=== PATIENT | female | born 1995 | race Caucasian/White ===

== ENCOUNTER → 2019-08-14 10:55 | Outpatient (CLI) | payer OTHER, MEDICAID, SELFPAY ==
--- NOTE | 2019-08-14 10:59 | DI.US.S_ITS ---
PROCEDURE: US OB <= 14 WEEKS FETUS INDICATIONS: VIABILITY OUTSIDE/PRIOR DATING DATA: Last menstrual period (LMP): 06/27/19. LMP-based estimated date of delivery (JERI): 04/02/20. First dating scan (date and location): 08/14/19 Estimated date of delivery (JERI) from first dating scan: 04/06/20. TECHNIQUE: Real-time scanning was performed of the fetus and maternal pelvic organs, with image documentation. Endovaginal scanning was also performed to better visualize the fetus and maternal ovaries. COMPARISON: None. FINDINGS: Embryo: Single living intrauterine fetus is present with heart rate measured 125 beats per minute. [place]-rump length measures 0.56 cm, 6 weeks 2 days. [place]-gestational hemorrhage measuring 0.6 x 1.0 x 1.6 cm. Irregular shaped/appearance of the yolk sac. Measurement variability in dating: +/- 4 weeks by LMP, +/- 7 days by mean sac diameter (use before 6 weeks gestation if crown-rump length not able to be measured), +/- 5 days by crown-rump length (up to 8 weeks 6 days gestation), +/- 7 days by crown-rump length (up to 13 weeks 6 days gestation). Maternal organs: Ovaries unremarkable bilaterally. Limited images through the kidneys demonstrate no hydronephrosis. IMPRESSION: Single living intrauterine fetus with a gestational age of 6 weeks and 2 days by today's ultrasound measurements. [place]-gestational hemorrhage. Dictated by: Filipe Thakur M.D. on 08/14/2019 at 15:12 Approved by: Filipe Thakur M.D. on 08/14/2019 at 15:16
== END ==
PROVIDERS: Referring Provider Obstetrics & Gynecology; Visit Provider Obstetrics & Gynecology
DX: O20.9 Hemorrhage in early pregnancy, unspecified (principal); Z3A.01 Less than 8 weeks gestation of pregnancy
CPT/HCPCS: 36415; 76801; 76817; 80055; 81003; 84702; 86787; 86803; 86850; 86900; 86901; 87086; 87389

== ENCOUNTER → 2019-08-14 15:16 | Outpatient (CLI) | payer OTHER, MEDICAID, SELFPAY ==
[2019-08-14 16:14] LABS: Add Manual Diff / Slide Review NO; Basophils Absolute Auto 0 /uL (0-100); Basophils Percent Auto 0.5 % (0-2); Eosinophils Absolute Auto 100 /uL (0-450); Eosinophils Percent Auto 1.9 % (2-4); Hematocrit 37.1 % (36-46); Hemoglobin 12.9 g/dL (12.0-16.0); Lymphocytes Absolute Auto 2200 /uL (1100-4500); Lymphocytes Percent Auto 28.5 % (25-40); Mean Corpuscular HGB Conc 34.9 % (30-36); Mean Corpuscular Hemoglobin 30.3 PG (26-34); Monocytes Absolute Auto 700 /uL (0-900); Monocytes Percent Auto 8.7 % (3-14); Neutrophils Absolute Auto 4600 /uL (1500-7000); Neutrophils Percent Auto 60.4 % (50-75); Platelet Count 292 X10^3/uL (150-400); Red Blood Cell Count 4.26 X10^6/uL (4.0-5.2); Red Cell Distribution Width 13.8 % (11.6-14.8); White Blood Cell Count 7.6 X10^3/uL (4.5-11.0)
[2019-08-14 16:31] LABS: Appearance Urine UA CLEAR; Bilirubin Urine UA NEGATIVE (NEGATIVE); Color Urine UA YELLOW; Glucose Urine UA NEGATIVE (Negative); Ketones Urine UA NEGATIVE (NEGATIVE); Leukocyte Esterase Urine UA NEGATIVE (NEGATIVE); Nitrite Urine UA NEGATIVE (Negative); Occult Blood Urine UA NEGATIVE (Negative); Protein Urine UA NEGATIVE (Negative); Specific Gravity Urine UA 1.015 (1.000-1.035); Urobilinogen Urine UA 0.2 E.U./dL (0.2)
[2019-08-14 16:50] LABS: pH Urine UA 6.5 (4.5-8.0)
[2019-08-14 17:25] LABS: Rubella Antibody IgG 36.2 IU/mL (>15)
[2019-08-14 17:32] LABS: Hepatitis B Surface Antigen NEGATIVE s/c (NEGATIVE)
[2019-08-14 17:34] LABS: HCG Quantitative /Beta subunit 18876 mIU/mL
[2019-08-14 17:40] LABS: HIV 1 & 2 Ab/Ag 4th Gen Combo NEGATIVE (NEGATIVE)
[2019-08-14 17:46] LABS: Hep C Virus Ab w/Reflex Quant NEGATIVE s/c (NEGATIVE)
[2019-08-15 05:09] LABS: RPR Screen Non Reactive (Non Reactive)
[2019-08-15 08:09] LABS: Varicella IgG Antibody 256 index (Immune >165)
== END ==
PROVIDERS: Visit Provider Obstetrics & Gynecology
DX: O46.90 Antepartum hemorrhage, unspecified, unspecified trimester (principal)
CPT/HCPCS: 36415; 80055; 81003; 84702; 86787; 86803; 86850; 86900; 86901; 87086; 87389

== ENCOUNTER → 2019-08-28 11:40 | Outpatient (CLI) | payer OTHER, MEDICAID, SELFPAY ==
[2019-08-28 15:31] LABS: Urine N gonorrhoeae NOT DETECTED
[2019-08-28 15:33] LABS: Urine Chlamydia NOT DETECTED
== END ==
PROVIDERS: Visit Provider Obstetrics & Gynecology
DX: Z11.3 Encounter for screening for infections with a predominantly sexual mode of transmission (principal)
CPT/HCPCS: 87491; 87591

== ENCOUNTER → 2019-09-22 11:28 | Outpatient (CLI) | payer OTHER, MEDICAID, SELFPAY ==
[2019-09-29 09:06] LABS: Sequential Screen 1st Trimeste FINAL PENDING
== END ==
DX: Z34.01 Encounter for supervision of normal first pregnancy, first trimester (principal); Z3A.12 12 weeks gestation of pregnancy
CPT/HCPCS: 36415; 84163; 84702

== ENCOUNTER → 2019-11-10 15:48 | Outpatient (CLI) | payer OTHER, MEDICAID, SELFPAY | PROVIDERS: Referring Provider Obstetrics & Gynecology; Visit Provider Obstetrics & Gynecology | DX: Z34.82 Encounter for supervision of other normal pregnancy, second trimester (principal); Z36.0 Encounter for antenatal screening for chromosomal anomalies | CPT/HCPCS: 36415; 82105; 82677; 84163; 84702; 86336 ==

== ENCOUNTER → 2019-11-22 15:10 | Outpatient (CLI) | payer OTHER, MEDICAID, SELFPAY ==
--- NOTE | 2019-11-22 15:10 | DI.US.S_ITS ---
PROCEDURE: US OB >= 14 WEEKS FETUS INDICATIONS: 20 week anatomy scan OUTSIDE/PRIOR DATING DATA: Last menstrual period (LMP): 06/27/2019. LMP-based estimated date of delivery (JERI): 04/02/2020 . First dating scan (date and location): 08/14/2019 . Estimated date of delivery (JERI) from first dating scan: 04/06/2020 . TECHNIQUE: Real-time scanning was performed of the fetus, with image documentation and biometric measurements. Endovaginal scanning: No COMPARISON: [facility], , OB >= 14 WEEKS FETUS, 09/19/2019, 11:26. FINDINGS: General: A single living intrauterine gestation is present. Presentation: Vertex. Placenta: Placental position is posterior , without previa. Amniotic fluid index: 13.4 cm, normal range is 5-24 cm. heart rate: 149 beats per minute. Maternal cervical canal: 4.1 cm long. Normal lower limit is 2.5 cm. biometrics: Biparietal diameter: 20 weeks Head circumference: 20 weeks 2 days Abdominal circumference: 20 weeks 1 Femur length: 20 weeks 4 days Estimated gestational age from initial scan: 20 weeks 4 days Composite gestational age from present scan: 20 weeks 2 days Estimated weight and percentile: 345 g; 31st percentile Measurement variability for biometric dating: +/- 7 days from 14 weeks to 15 weeks 6 days gestation, +/- 10 days from 16 weeks to 21 weeks 6 days gestation, +/- 2 weeks from 22 weeks to 27 weeks 6 days gestation, +/- 3 weeks for 28 weeks gestation or later. weight reference: 4500 g or EFW >90/95% is considered macrosomia or large for gestational age. EFW <10% is small for gestational age. EFW 5% or less is considered intra-uterine growth restriction. Anatomic survey: Neuro: Ventricles are non-dilated at less than 10 mm. Cisterna magna is normal at 3-11 mm. Cerebellum is normal in size and morphology. Nuchal skin fold: Normal at less than 6 mm between 14-21 weeks gestational age. Face: Nose and lips, facial profile are normal. Spine: No evidence for spina bifida. Heart: 4-chambered heart is present, with normal ventricular outflow tracts. Diaphragm: Diaphragm is intact. Stomach: Left-sided stomach is present. Kidneys: No hydronephrosis. Normal is less than 5 mm in 2nd trimester, less than 7 mm in 3rd trimester. Cord: 3-vessel cord has orthotopic insertion. Bladder: Normal in size. Extremities: All 4 extremities identified. IMPRESSION: 1. Single living IUP redemonstrated and interval growth is normal. 2. Normal anatomic survey. Dictated by: Thomas BALDWIN Interpreted: Davi Jarrell MD on 11/22/2019 at 16:50 Approved by: Davi Jarrell M.D. on 11/22/2019 at 17:01
== END ==
PROVIDERS: Referring Provider Obstetrics & Gynecology; Visit Provider Obstetrics & Gynecology
DX: Z34.02 Encounter for supervision of normal first pregnancy, second trimester (principal); Z3A.20 20 weeks gestation of pregnancy
CPT/HCPCS: 76811

== ENCOUNTER → 2019-12-21 16:22 | Outpatient (CLI) | payer OTHER, MEDICAID, SELFPAY ==
[2019-12-23 15:36] LABS: Candida species Positive (Negative); Gardnerella vaginalis Positive (Negative); Trichomoas vaginalis Negative (Negative)
== END ==
PROVIDERS: PCP Obstetrics & Gynecology; Visit Provider Obstetrics & Gynecology
DX: O26.899 Other specified pregnancy related conditions, unspecified trimester (principal); N89.8 Other specified noninflammatory disorders of vagina
CPT/HCPCS: 87480; 87510; 87660

== ENCOUNTER → 2020-01-02 13:48 | Outpatient (CLI) | payer OTHER, MEDICAID, SELFPAY ==
[2020-01-02 16:04] LABS: Hematocrit 37.2 % (36-46); Hemoglobin 12.8 g/dL (12.0-16.0)
[2020-01-02 16:05] LABS: GTT (PREG) 1 Hour PP 50gm Dose 128 mg/dL (76-139)
== END ==
PROVIDERS: Referring Provider Obstetrics & Gynecology; Visit Provider Obstetrics & Gynecology
DX: Z34.82 Encounter for supervision of other normal pregnancy, second trimester (principal)
CPT/HCPCS: 36415; 82950; 85014; 85018

== ENCOUNTER → 2020-02-05 09:37 | Outpatient (CLI) | payer OTHER, MEDICAID, SELFPAY ==
--- NOTE | 2020-02-05 09:39 | DI.US.S_ITS ---
PROCEDURE: US OB LIMITED INDICATIONS: Growth Ultrasound OUTSIDE/PRIOR DATING DATA: Last menstrual period (LMP): 06/27/2019. LMP-based estimated date of delivery (JERI): 04/02/2020 . First dating scan (date and location): 08/14/2019 . Estimated date of delivery (JERI) from first dating scan: 04/06/2020 . TECHNIQUE: Real-time scanning was performed of the fetus, with image documentation and biometric measurements. Endovaginal scanning: No COMPARISON: [facility], , US OB >= 14 WEEKS FETUS, 01/23/2020, 9:23. [facility], , US OB >= 14 WEEKS FETUS, 11/22/2019, 15:34. FINDINGS: General: A single living intrauterine gestation is present. Presentation: Vertex. Placenta: Placental position is posterior left lateral , without previa. Amniotic fluid index: 13 cm, normal range is 5-24 cm. heart rate: 132 beats per minute. Maternal cervical canal: 5.7 cm long. Normal lower limit is 2.5 cm. biometrics: Biparietal diameter: 29 weeks 3 days Head circumference: 31 weeks Abdominal circumference: 30 weeks 5 days Femur length: 31 weeks 4 days Estimated gestational age from initial scan: 31 weeks 2 days Composite gestational age from present scan: 30 weeks 5 days Estimated weight and percentile: 1655 g; 25th percentile Measurement variability for biometric dating: +/- 7 days from 14 weeks to 15 weeks 6 days gestation, +/- 10 days from 16 weeks to 21 weeks 6 days gestation, +/- 2 weeks from 22 weeks to 27 weeks 6 days gestation, +/- 3 weeks for 28 weeks gestation or later. weight reference: 4500 g or EFW >90/95% is considered macrosomia or large for gestational age. EFW <10% is small for gestational age. EFW 5% or less is considered intra-uterine growth restriction. Other: Not applicable. IMPRESSION: 1. Single living IUP redemonstrated and interval growth is normal. Dictated by: Thomas Casarez [facility] Interpreted: Tez Joseph MD on 02/05/2020 at 13:38 Approved by: Tez Joseph M.D. on 02/05/2020 at 15:08
== END ==
PROVIDERS: Referring Provider Obstetrics & Gynecology; Visit Provider Obstetrics & Gynecology
DX: Z34.03 Encounter for supervision of normal first pregnancy, third trimester (principal); Z3A.30 30 weeks gestation of pregnancy
CPT/HCPCS: 76815

== ENCOUNTER → 2020-02-28 12:42 | Outpatient (CLI) | payer OTHER, MEDICAID, SELFPAY ==
--- NOTE | 2020-02-28 12:45 | DI.US.S_ITS ---
PROCEDURE: OB LIMITED INDICATIONS: Growth Check OUTSIDE/PRIOR DATING DATA: Last menstrual period (LMP): 06/27/19 . LMP-based estimated date of delivery (JERI): 04/02/20 . First dating scan (date and location): 08/14/19 . Estimated date of delivery (JERI) from first dating scan: 04/06/20 . TECHNIQUE: Real-time scanning was performed of the fetus, with image documentation and biometric measurements. Endovaginal scanning: Not performed COMPARISON: [facility], OB >= 14 WEEKS FETUS, 02/27/2020, 12:08. [facility] OB >= 14 WEEKS FETUS, 01/23/2020, 9:23. [facility] OB >= 14 WEEKS FETUS, 11/22/2019, 15:34. [facility] OB >= 14 WEEKS FETUS, 09/19/2019, 11:26. [facility] OB <= 14 WEEKS FETUS, 08/28/2019, 11:12. [facility] OB <= 14 WEEKS FETUS, 08/14/2019, 11:13. [facility] OB LIMITED, 02/05/2020, 10:08. FINDINGS: General: A single living intrauterine gestation is present. Presentation: Vertex. Placenta: Placental position is posterior , without previa. Amniotic fluid index: 16.6 cm, normal range is 5-24 cm. heart rate: 157 beats per minute. Maternal cervical canal: 4.4 cm long. Normal lower limit is 2.5 cm. biometrics: Biparietal diameter: 7.6 cm, 30 weeks 5 days Head circumference: 28.0 cm, 30 weeks 5 days Abdominal circumference: 29.8 cm, 33 weeks 6 days Femur length: 6.5 cm, 32 weeks 3 days Estimated gestational age from initial scan: 34 weeks 4 days Composite gestational age from present scan: 32 weeks 1 day Estimated weight and percentile: 2110 g, 11th percentile Measurement variability for biometric dating: +/- 7 days from 14 weeks to 15 weeks 6 days gestation, +/- 10 days from 16 weeks to 21 weeks 6 days gestation, +/- 2 weeks from 22 weeks to 27 weeks 6 days gestation, +/- 3 weeks for 28 weeks gestation or later. weight reference: 4500 g or EFW >90/95% is considered macrosomia or large for gestational age. EFW <10% is small for gestational age. EFW 5% or less is considered intra-uterine growth restriction. Other: Not applicable. IMPRESSION: Single living intrauterine fetus. Estimated weight at the 11th percentile. Head circumference less than expected as above which may be constitutional, technically nonspecific. If clinically warranted, follow-up ultrasound for growth could be performed. Dictated by: Filipe Thakur M.D. on 02/28/2020 at 17:27 Approved by: Filipe Thakur M.D. on 02/28/2020 at 17:34
== END ==
PROVIDERS: Referring Provider Obstetrics & Gynecology; Visit Provider Obstetrics & Gynecology
DX: Z03.74 Encounter for suspected problem with fetal growth ruled out (principal); Z3A.30 30 weeks gestation of pregnancy
CPT/HCPCS: 76815

== ENCOUNTER → 2020-03-05 13:59 | Outpatient (CLI) | payer OTHER, MEDICAID, SELFPAY ==
[2020-03-06 15:03] LABS: Strep Grp B PCR POS for Grp B Strep
== END ==
PROVIDERS: Visit Provider Obstetrics & Gynecology
DX: Z34.83 Encounter for supervision of other normal pregnancy, third trimester (principal); Z3A.36 36 weeks gestation of pregnancy
CPT/HCPCS: 87653

== ENCOUNTER 2020-03-05 14:13 | Outpatient (CLI) | payer OTHER, MEDICAID, SELFPAY ==
[2020-03-05 15:07] LABS: Alanine Aminotransferase 16 IU/L (<35); Albumin 3.5 g/dL (3.5-5.0); Albumin Globulin Ratio 1.1 (1.0-2.8); Alkaline Phosphatase 93 U/L (38-126); Aspartate Aminotransferase 22 IU/L (14-36); BUN Creatinine Ratio 18.2 (6-22); Bilirubin Total 0.2 mg/dL (0.2-1.3); Blood Urea Nitrogen 12 mg/dL (7-17); Calcium 8.9 mg/dL (8.4-10.2); Carbon Dioxide 25 mmol/L (22-32); Chloride 106 mmol/L (98-107); Estimated Glomerular Filt Rate > 60.0 mL/min (>60); Globulin 3.2 g/dL (1.7-4.1); Glucose 88 mg/dL (70-100); HEMOLYSIS < 15 (0-50); Lactate Dehydrogenase 356 U/L (313-618); Potassium 4.2 mmol/L (3.4-5.1); Sodium 135 mmol/L (137-145); Total Protein 6.7 g/dL (6.3-8.2); Uric Acid 4.7 mg/dL (2.5-6.2)
[2020-03-05 15:32] LABS: Creatinine Urine Random 16.9 mg/dL; Protein (Total) Urine Random 12 mg/dL (0-12); Protein Creatinine Ratio Urine 0.71 GRAM/24H
--- NOTE | 2020-03-05 16:52 | PM.OBTRLD ---
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 Patient sent for NST in the setting of unexplained IUGR, 10/06 BPP in the office. Vital Signs Vital Signs: 116/71, HR 70 PFSH Medical History Ankle fracture, right Herniated intervertebral disc of lumbar spine (~2017) Situational depression (~2015) Vaginal bleeding during Surgical History [place] teeth extracted (~2012) Family History Mother Hypertension Endometriosis Mental health problem Depression Eczema of face Father No problems noted. Grandfather Hypertension Grandmother Mental health problem Bipolar 1 disorder Depression Grandfather Diabetes mellitus Heart disease Grandmother Has poorly balanced diet Social History marital status: household members: spouse and family pets and animals: Yes (X 1 dog) education level: college (Working on her Ass. 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 Smoking Status: Former smoker (Stopped X 5 years ago : less than 6 months) second hand exposure: Yes (MIL and Grandmother) alcohol intake: former (pre- : rare) substance use type: former substance user and marijuana (stopped smoking with diagnoses ) Review of Systems Constitutional Constitutional: Reports system reviewed and no additional complaints, except as documented Musculoskeletal Musculoskeletal: Reports system reviewed and no additional complaints, except as documented Neurologic Neurologic: Reports system reviewed and no additional complaints, except as documented Objective Labs Result Diagrams: 03/05/20 14:42 03/05/20 14:42 Labs: Laboratory Results - last 24 hr 03/05/20 03/05/20 14:42 14:50 Sodium 135 L Potassium 4.2 Chloride 106 Carbon Dioxide 25 BUN 12 Creatinine 0.66 Estimated GFR > 60.0 BUN/Creatinine Ratio 18.2 Glucose 88 Uric Acid 4.7 Calcium 8.9 Total Bilirubin 0.2 AST 22 ALT 16 Alkaline Phosphatase 93 Lactate Dehydrogenase 356 Total Protein 6.7 Albumin 3.5 Globulin 3.2 Albumin/Globulin Ratio 1.1 U Random Total Protein 12 Urine Creatinine 16.9 Protein/Creatinin Ratio 0.71 Evaluation Evaluation Baseline heart rate: 130 Variability: Moderate (11-25) monitor accelerations: Present monitor decelerations: Absent Category of Tracing: Reactive Status: Category l Laboratory results: Laboratory Tests 03/05/20 03/05/20 14:42 14:50 Sodium 135 L Potassium 4.2 Chloride 106 Carbon Dioxide 25 BUN 12 Creatinine 0.66 Estimated GFR > 60.0 BUN/Creatinine Ratio 18.2 Glucose 88 Uric Acid 4.7 Calcium 8.9 Total Bilirubin 0.2 AST 22 ALT 16 Alkaline Phosphatase 93 Lactate Dehydrogenase 356 Total Protein 6.7 Albumin 3.5 Globulin 3.2 Albumin/Globulin Ratio 1.1 U Random Total Protein 12 Urine Creatinine 16.9 Protein/Creatinin Ratio 0.71 Diagnosis, Plan/Disposition Plan/Disposition Plan: PIH, TORCH labs pending. Home with scheduled precautions. OB Disposition: home
[2020-03-05 19:45] LABS: Add Manual Diff / Slide Review NO; Basophils Absolute Auto 0 /uL (0-100); Basophils Percent Auto 0.3 % (0-2); Eosinophils Absolute Auto 100 /uL (0-450); Eosinophils Percent Auto 0.6 % (2-4); Hematocrit 38.1 % (36-46); Hemoglobin 12.8 g/dL (12.0-16.0); Lymphocytes Absolute Auto 1800 /uL (1100-4500); Lymphocytes Percent Auto 13.7 % (25-40); Mean Corpuscular HGB Conc 33.6 % (30-36); Mean Corpuscular Hemoglobin 30.2 PG (26-34); Monocytes Absolute Auto 1000 /uL (0-900); Monocytes Percent Auto 7.7 % (3-14); Neutrophils Absolute Auto 10300 /uL (1500-7000); Neutrophils Percent Auto 77.7 % (50-75); Platelet Count 250 X10^3/uL (150-400); Red Blood Cell Count 4.23 X10^6/uL (4.0-5.2); Red Cell Distribution Width 14.5 % (11.6-14.8); White Blood Cell Count 13.3 X10^3/uL (4.5-11.0)
[2020-03-06 07:08] LABS: HSV Type 1 AB, IgG <0.91 index (0.00-0.90); RPR Screen Non Reactive (Non Reactive); Toxoplasma IgG Interp Negative (.); Toxoplasma gohndii IgG <3.0 IU/mL (0.0-7.1)
[2020-03-06 16:39] LABS: HSV I/II IgM <0.91 Ratio (0.00-0.90)
== END 2020-03-05 15:50 | disposition home or self-care (01) ==
LOC: LABOR 15:13 → OB 03-07 08:45
PROVIDERS: Referring Provider Obstetrics & Gynecology; Visit Provider Obstetrics & Gynecology
DX: O36.5930 Maternal care for other known or suspected poor fetal growth, third trimester, not applicable or unspecified (principal); Z3A.36 36 weeks gestation of pregnancy
CPT/HCPCS: 36415; 59025; 59050; 80053; 82570; 83615; 84156; 84550; 85025; 86592; 86644; 86645; 86694; 86695; 86696; 86777; 86778; 87653; G0378; G0379

== ENCOUNTER → 2020-03-08 09:09 | Outpatient (CLI) | payer OTHER, MEDICAID, SELFPAY ==
[2020-03-08 11:00] LABS: Collection Time Urine 24 Hours; Protein (Total) Urine Random 11 mg/dL (0-12); Total Protein 24 Hour Urine 248 mg/day (42-225); Total Volume Urine 2250 mL
== END ==
PROVIDERS: Referring Provider Obstetrics & Gynecology; Visit Provider Obstetrics & Gynecology
DX: Z34.90 Encounter for supervision of normal pregnancy, unspecified, unspecified trimester (principal); R80.9 Proteinuria, unspecified
CPT/HCPCS: 84156

== ENCOUNTER 2020-03-08 09:30 | Outpatient (CLI) | payer OTHER, MEDICAID, SELFPAY ==
--- NOTE | 2020-03-08 10:04 | PM.OBTRLD ---
Visit Information Visit Information Date of evaluation: 03/08/20 Primary OB Provider: Tequila Grijalva On-call OB Provider: Jahaira King Reason for Evaluation: Yes non-stress test non-stress test reason: hypertension/pre-eclampsia Comments/Additional reasons for admission: Patient is a 24yo @36+3 here for IUGR. 24 hr urine pending per Dr. Grijalva. Vital Signs Vital Signs: T 35.8 BP 118/77 HR 64 PFSH Medical History Ankle fracture, right Herniated intervertebral disc of lumbar spine (~2017) Situational depression (~2015) Vaginal bleeding during Surgical History [place] teeth extracted (~2012) Family History Mother Hypertension Endometriosis Mental health problem Depression Eczema of face Father No problems noted. Grandfather Hypertension Grandmother Mental health problem Bipolar 1 disorder Depression Grandfather Diabetes mellitus Heart disease Grandmother Has poorly balanced diet Social History marital status: household members: spouse and family pets and animals: Yes (X 1 dog) education level: college (Working on her Ass. 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 BP normal. NST reactive. Urine protein/creatinine was elevated this week but remaining PIH and TORCH labs normal. 24 hr urine pending. Follow up with Dr. Grijalva as scheduled. OB Disposition: home
== END 2020-03-08 10:05 | disposition home or self-care (01) ==
LOC: LABOR 09:38 → OB 03-11 12:40
PROVIDERS: Referring Provider Obstetrics & Gynecology; Visit Provider Obstetrics & Gynecology
DX: O36.5930 Maternal care for other known or suspected poor fetal growth, third trimester, not applicable or unspecified (principal); Z3A.36 36 weeks gestation of pregnancy; R80.9 Proteinuria, unspecified
CPT/HCPCS: 59025; 84156; G0378; G0379

== ENCOUNTER 2020-03-15 09:35 | Outpatient (CLI) | payer OTHER, MEDICAID, SELFPAY ==
--- NOTE | 2020-03-15 10:24 | P.TNLD_ITS ---
Visit Information Visit Information Date of evaluation: 03/15/20 Primary OB Provider: Tequila Grijalva Reason for Evaluation: Yes non-stress test Comments/Additional reasons for admission: Patient is a 24yo @37 weeks, presenting for scheduled NST for IUGR due to suspected constitutionally small fetus. Vital Signs Vital Signs: 111/70 [facility] Medical History Ankle fracture, right Herniated intervertebral disc of lumbar spine (~2017) Situational depression (~2015) Vaginal bleeding during Surgical History [place] teeth extracted (~2012) Family History Mother Hypertension Endometriosis Mental health problem Depression Eczema of face Father No problems noted. 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 IOL at 39 weeks. OB Disposition: home
== END 2020-03-15 10:22 | disposition home or self-care (01) ==
LOC: LABOR 10:46 → OB 03-17 10:30
PROVIDERS: Referring Provider Obstetrics & Gynecology; Visit Provider Obstetrics & Gynecology
DX: O36.5930 Maternal care for other known or suspected poor fetal growth, third trimester, not applicable or unspecified (principal); Z3A.37 37 weeks gestation of pregnancy
CPT/HCPCS: 59025; G0378; G0379

== ENCOUNTER 2020-03-18 11:32 | Outpatient (CLI) | payer OTHER, MEDICAID, SELFPAY ==
--- NOTE | 2020-03-18 12:20 | PM.OBTRLD ---
Visit Information Visit Information Date of evaluation: 03/18/20 Primary OB Provider: Tequila Grijalva On-call OB Provider: Lizbeth Ambrose Reason for Evaluation: Yes non-stress test non-stress test reason: other ([facility]) [facility] Medical History Ankle fracture, right Herniated intervertebral disc of lumbar spine (~2017) Situational depression (~2015) Vaginal bleeding during Surgical History [place] teeth extracted (~2012) Family History Mother Hypertension Endometriosis Mental health problem Depression Eczema of face Father No problems noted. 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 Smoking Status: Former smoker second hand exposure: Yes (MIL and Grandmother) alcohol intake: former substance use type: former substance user and marijuana Evaluation Evaluation Baseline heart rate: 130 Variability: Moderate (11-25) monitor accelerations: Present monitor decelerations: Absent Contraction Frequency (minutes): 0 Category of Tracing: Reactive Status: Category l Diagnosis, Plan/Disposition Final Diagnosis (1) Small for gestational age fetus: Status: Acute (2) 37 weeks gestation of : Status: Acute Plan/Disposition Plan: Patient is scheduled for induction in 1 week OB Disposition: home
== END 2020-03-18 12:25 | disposition home or self-care (01) ==
LOC: OB 15:30
PROVIDERS: Referring Provider Obstetrics & Gynecology; Visit Provider Obstetrics & Gynecology
DX: O36.5930 Maternal care for other known or suspected poor fetal growth, third trimester, not applicable or unspecified (principal); Z3A.37 37 weeks gestation of pregnancy
CPT/HCPCS: 59025; G0378; G0379

== ENCOUNTER 2020-03-21 15:01 | Inpatient (IN) | payer OTHER, MEDICAID, SELFPAY ==
[2020-03-21 16:07] LABS: COVID19 -Nasal RAPID Negative (Negative)
[2020-03-21] MEDS: DINOPROSTONE VAG (CERVIDIL) 10 MG VAG (16:09)
[2020-03-21 17:09] LABS: Add Manual Diff / Slide Review NO; Basophils Absolute Auto 0 /uL (0-100); Basophils Percent Auto 0.2 % (0-2); Eosinophils Absolute Auto 100 /uL (0-450); Eosinophils Percent Auto 0.6 % (2-4); Hematocrit 36.9 % (36-46); Hemoglobin 12.3 g/dL (12.0-16.0); Lymphocytes Absolute Auto 2200 /uL (1100-4500); Lymphocytes Percent Auto 18.6 % (25-40); Mean Corpuscular HGB Conc 33.4 % (30-36); Mean Corpuscular Hemoglobin 30.2 PG (26-34); Mean Corpuscular Volume 90.4 fL (80-100); Monocytes Absolute Auto 1000 /uL (0-900); Monocytes Percent Auto 8.8 % (3-14); Neutrophils Absolute Auto 8500 /uL (1500-7000); Neutrophils Percent Auto 71.8 % (50-75); Platelet Count 221 X10^3/uL (150-400); Red Blood Cell Count 4.08 X10^6/uL (4.0-5.2); Red Cell Distribution Width 14.8 % (11.6-14.8); White Blood Cell Count 11.9 X10^3/uL (4.5-11.0)
[2020-03-21 17:50] VITALS: BP 116/73
--- NOTE | 2020-03-21 20:04 | PM.OBHP.1 ---
OB HPI Date/Time Date of admission: 03/21/20 Date Patient Seen: 03/21/20 Time Patient Seen: 17:45 History of Present Condition Chief complaint: Induction : 1 Para: 0 Estimated Date of Delivery: 04/02/20 Estimated Gestational Age (weeks): 38+2 Narrative: Arline Sandra is a 24 year old female 1 para 0 at 38-,2/7 weeks gestation for cervical ripening and induction of labor due to intrauterine growth restriction and oligohydramnios. Patient saw MFM at [facility] and had an BECCA of 5.1 cm. They called and recommended induction of labor. Indications Indication for induction OB: nonreassuring APT (Oligohydramnios and IUGR) Operative indications ( section): placental insufficiency History of Present care: good care, initiated at week # (8) and number of visits (12) Dating criteria: LMP confirmed by 1st trimester US Ultrasounds: normal 1st trimester US, normal mid trimester US and abnormal US findings (IUGR noted at 32 weeks gestation) Obstetrical complications: growth restriction and other (Oligohydramnios) Medical complications: none Preadmission Labs Blood type: O (+) positive -: Antibody screen: negative, GBS status: positive, HBsAG: negative, HIV: negative and RPR/VDLR: negative -: Chlamydia screen: not detected and Gonorrhea screen: not detected -: Rubella: immune and Varicella: immune HCT: 36.9 HCAB: negative Integrated screen: Normal 1 hr GTT: 128 Evaluation Evaluation Baseline heart rate: 135 Variability: Moderate (11-25) monitor accelerations: Present monitor decelerations: Absent Status: Category l Cervical dilation (cm): 0 Cervical effacement (%): 50 station: -2 Laboratory results: Laboratory Tests 03/21/20 03/21/20 03/21/20 15:45 17:00 17:00 WBC 11.9 H RBC 4.08 Hgb 12.3 Hct 36.9 MCV 90.4 MCH 30.2 MCHC 33.4 RDW 14.8 Plt Count 221 Neut % (Auto) 71.8 Lymph % (Auto) 18.6 L Mcculloch % (Auto) 8.8 Eos % (Auto) 0.6 L Baso % (Auto) 0.2 Neut # (Auto) 8500 H Lymph # (Auto) 2200 [place] # (Auto) 1000 H Eos # (Auto) 100 Baso # (Auto) 0 SARS-CoV-2 (PCR) Negative Blood Type O Positive Antibody Screen Negative [facility] Medical History (Updated 03/18/20 @ 12:22 by Lizbeth Ambrose MD) 37 weeks gestation of Ankle fracture, right Herniated intervertebral disc of lumbar spine (~2017) Situational depression (~2015) Vaginal bleeding during Surgical History [place] teeth extracted (~2012) Family History Mother Hypertension Endometriosis Mental health problem Depression Eczema of face Father No problems noted. 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 Smoking Status: Never smoker second hand exposure: Yes (MIL and Grandmother) alcohol intake: former substance use type: former substance user and marijuana Meds Home Medications and Allergies Home Medications Medication Instructions Recorded Confirmed Type prenat.vits,oswaldo,vou-[id number] 2 tab PO DAILY 08/24/19 03/21/20 History Double Electric breast Pump and #1 each 12/21/19 03/18/20 Rx Supplies Allergies Allergy/AdvReac Type Severity Reaction Status Date / Time No Known Drug Allergies Allergy Verified 12/21/19 15:38 Exam Vital Signs (past 8 hours): - 03/21/20 17:50 Blood Pressure 116/73 Narrative Exam Narrative: Generally: Patient is sitting up in bed, no acute distress Lungs: Clear to auscultation bilaterally Cardiovascular: Regular rate and rhythm Fundal height: 36 cm Estimated weight: 5-1/2 lb Extremities: No edema, 1+ DTRs Objective Labs Result Diagrams: 03/21/20 17:00 Labs: Laboratory Results - last 24 hr 03/21/20 03/21/20 03/21/20 15:45 17:00 17:00 WBC 11.9 H RBC 4.08 Hgb 12.3 Hct 36.9 MCV 90.4 MCH 30.2 MCHC 33.4 RDW 14.8 Plt Count 221 Neut % (Auto) 71.8 Lymph % (Auto) 18.6 L [place]ulloch % (Auto) 8.8 Eos % (Auto) 0.6 L Baso % (Auto) 0.2 Neut # (Auto) 8500 H Lymph # (Auto) 2200 [place]ulloch # (Auto) 1000 H Eos # (Auto) 100 Baso # (Auto) 0 SARS-CoV-2 (PCR) Negative Blood Type O Positive Antibody Screen Negative Assessment and Plan Assessment and Plan Assessment and Plan narrative: Assessment: 24-year-old 1 para 0 at 38-,2/7 weeks gestation for cervical ripening and induction of labor secondary to IUGR and oligohydramnios GBS positive Plan: Cervidil Pitocin in the morning if favorable cervix Group B strep prophylaxis once in active labor Epidural as necessary Discussed the need for cervical ripening and induction with the patient and her significant other. They voiced understanding of the procedure. They have consented to the induction. Time Spent with Patient Total time spent with greater than 50% in coordination of care (as documented) at patient's floor/unit and/or counseling patient:: 15-24 minutes
[2020-03-22] MEDS: miSOPROStoL 25 MCG TABLET 50 MCG PO (04:45)
--- NOTE | 2020-03-22 09:23 | PM.PN.1 ---
Subjective Subjective Date Patient Seen: 03/22/20 Time Patient Seen: 09:23 Interval history: Patient denies headaches, scotomata, epigastric pain. She is not having any significant contractions. She is not leaking any fluid. Baby's been moving well. Exam Vital Signs (past 8 hours): Blood pressure 111/58, pulse 70, temperature 36.0? Narrative Exam Narrative: Patient's abdomen is soft, nontender. Cervical exam is 1 and long and 0 station. Extremities without edema and nontender. heart tones 130s with accelerations and no decelerations. Category 1 tracing Patient has received Cervidil and Cytotec. She is not in active labor in her cervical exam is not favorable. Decision was made to place a Wood bulb for dilation. The speculum was placed in the vagina. A 24 [place] Wood bulb was placed through the cervix and the balloon inflated with 60 cc of saline. Patient tolerated the procedure well. Objective Labs Result Diagrams: 03/21/20 17:00 Labs: Laboratory Results - last 24 hr 03/21/20 03/21/20 03/21/20 15:45 17:00 17:00 WBC 11.9 H RBC 4.08 Hgb 12.3 Hct 36.9 MCV 90.4 MCH 30.2 MCHC 33.4 RDW 14.8 Plt Count 221 Neut % (Auto) 71.8 Lymph % (Auto) 18.6 L [place] % (Auto) 8.8 Eos % (Auto) 0.6 L Baso % (Auto) 0.2 Neut # (Auto) 8500 H Lymph # (Auto) 2200 [place] # (Auto) 1000 H Eos # (Auto) 100 Baso # (Auto) 0 SARS-CoV-2 (PCR) Negative Blood Type O Positive Antibody Screen Negative [facility] Medical History (Updated 03/18/20 @ 12:22 by Lizbeth Ambrose MD) 37 weeks gestation of Ankle fracture, right Herniated intervertebral disc of lumbar spine (~2017) Situational depression (~2015) Vaginal bleeding during Surgical History [place] teeth extracted (~2012) Family History Mother Hypertension Endometriosis Mental health problem Depression Eczema of face Father No problems noted. 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 She has not had any significant change in her cervix with Cytotec and Cervidil. Wood bulb for cervical dilation was placed. COVID-19 COVID-19 status: Negative Result date/Date tested (Pos, Neg/Pending): 03/21/20 Time Spent With Patient Time with patient: 15-24 minutes
[2020-03-22] MEDS: OXYTOCIN PREMIX 30 UNIT/500 ML PLAST..BAG IV (09:32)
[2020-03-22] MEDS: LACTATED RINGERS 1,000 ML 100 ML IV ×2 (09:32→18:17)
[2020-03-22] MEDS: PENICILLIN G POTASSIUM 5,000,000 UNIT in DEXTROSE 5% IN WATER 250 ML IV (15:06)
[2020-03-22] MEDS: FENT 2MCG/ML BUPIV 0.125% EPI 200 MCG/100 ML PLAST..BAG 6 MCG EPIDURAL (18:45)
--- NOTE | 2020-03-22 18:45 | PM.AN.REGBLK ---
Regional Block Pre-procedure Procedure: Continuous Lumbar Epidural for L&D Attending OB provider: Lizbeth Ambrose PMH/ROS narrative: at 38 weeks EGA induction for oligohydramnios and IUGR. Hx: No personal or family history of anesthesia problems. ASA Class: II Labs: Hct 36.9 % (36-46) 03/21/20 17:00 Plt Count 221 X10^3/uL (150-400) 03/21/20 17:00 Medications: Current Medications Generic Name Dose Route Start Last Admin Trade Name Freq PRN Reason Stop Dose Admin Calcium Carbonate 1,000 mg 03/21/20 15:41 Calcium Carbonate 500 Mg Tab PO Q2HR PRN Dyspepsia Diphenhydramine HCl 25 mg 03/22/20 14:36 Diphenhydramine 50 Mg/Ml Vial IV Q10M PRN Pruritis Fentanyl 50 mcg 03/21/20 15:41 Fentanyl 100 Mcg/2 Ml Inj IV Q1H PRN Pain, Moderate (4-6) Lactated Ringer's 1,000 mls @ 100 mls/hr 03/21/20 15:45 03/22/20 18:17 Lactated Ringers IV 100 mls/hr CONT LORY Administration Lactated Ringer's 1,000 mls @ 125 mls/hr 03/21/20 15:45 Lactated Ringers IV CONT LORY FENT 2MCG/ML BUPIV 0.125% EPI 200 mcg in 100 mls @ 6 mls/hr 03/22/20 14:45 Fentanyl/Bupiv/Ns 2mcg/Ml - 0.125% EPIDURAL CONT LORY Penicillin G Potassium 3,000,000 unit in 50 mls @ 100 mls/hr 03/22/20 19:00 Penicillin G Potassium IV Q4H LORY Oxytocin/Lactated Ringer's 30 unit in 500 mls @ 3 mls/hr 03/22/20 14:56 Oxytocin Premix IV TITRATE LORY Protocol 3 MILLIUNIT/MIN Metoclopramide HCl 10 mg 03/21/20 15:41 Metoclopramide 10 Mg/2 Ml Inj IV NOW PRN Nausea And Vomiting Misoprostol 50 mcg 03/22/20 05:00 03/22/20 04:45 Misoprostol 25 Mcg Tablet PO 50 mcg Q4HR LORY Administration Naloxone HCl 0.2 mg 03/21/20 15:41 Naloxone 0.4 Mg/Ml Vial IV Q2MIN PRN Opiate Reversal Ondansetron HCl 4 mg 03/21/20 15:41 Ondansetron 4 Mg/2 Ml Inj IV Q4HR PRN Nausea And Vomiting Allergies: Allergies Allergy/AdvReac Type Severity Reaction Status Date / Time No Known Drug Allergies Allergy Verified 12/21/19 15:38 Procedure Insertion date: 03/22/20 Insertion time: 18:26 Prep/Local: betadine x3 Interspace: L3-4 Patient position: sitting Needle: 18 gauge [employer] (CSE: 27g [place] through [place]ust[place], clear CSF, 1mL 0.25% bupiv) Loss of resistance with: saline [place] at (cm): 4 Catheter placed at SKIN (cm): 9 Catheter in SPACE (cm): 5 Insertion: No CSF, No Blood, No Paresthesia with insertion, No Paresthesia with injection and No Test dose reaction Initial Medications TEST DOSE time: 18:28 TEST DOSE: 1.5% lidocaine with epinephrine 1:200k (mL): 3 BOLUS DOSE time: 18:37 BOLUS DOSE (mL): 3 BOLUS DOSE med: other (infusate) Infusion INFUSION: 0.125% bupivacaine and with fentanyl 2 mcg/mL Initial rate (mL/hr): 6 Subsequent interventions: Post-procedure Anesthesia time START: 18:16 Anesthesia time END: 23:16 Post-procedure Anesthesia Assessment: Yes CV function: HR/BP stable, Yes Resp function: RR/sat/airway adequate, Yes Post-op hydration adequate, Yes Pain control adequate, Yes Nausea & vomiting absent, Yes Mental status appropriate and No Anesthesia complications
[2020-03-22] MEDS: PENICILLIN G POTASSIUM 3,000,000 UNIT/50 ML FROZ.PIGGY 100 UNIT IV ×2 (19:03→22:43)
--- NOTE | 2020-03-22 22:07 | PM.OBPNLAB ---
Date/Time Date Patient Seen: 03/22/20 Time Patient Seen: 22:07 Pain Control Pain control: epidural Pelvic Exam Dilation (cm): 5 Effacement (%): 100 station: 0 Contractions Contractions on admission: regular Monitor mode: Internal (toco) Pitocin rate (mU/min): 21 Contraction frequency (min): 3 Contraction duration (min): 1 Contraction pattern: Regular Contraction intensity: Strong/Firm Intrauterine tone measurement: 70 Status status: Category ll Heart Rate Baseline: 130 Monitor Accelerations: Present Monitor Decelerations: Recurrent Monitor Variability: Moderate Assessment and Plan Assessment: induction ongoing Comments: Decision was made to place an internal toco and try and amnio infusion to decrease the variables. Patient is now making progress. Patient is getting IV fluid bolus, O2 and position changes.
--- NOTE | 2020-03-22 23:46 | PM.OBPRVD ---
Events: Placental Insufficiency (Followed for SGA and decreased amniotic fluid) Labor & Delivery Delivery date: 03/22/20 Cervical ripening method: other (Cervidil followed by 1 dose of oral Cytotec followed by Wood bulb) Induction method: per pitocin protocol Delivery monitor: external FHT, external uterine and internal uterine Route of delivery: L&D Laceration Description: Periurethral - 1st Degree Estimated blood loss (mL): 800 Anesthesia Type: Epidural Narrative: Patient arrived on Labor and delivery for induction for decreasing amniotic fluid and worsening umbilical artery Dopplers. The patient received Cervidil with some mild cramping followed by 1 oral Cytotec. Patient still did not have a favorable cervix so a Wood bulb was placed. When she was dilated to 3 cm dilated the Wood bulb was removed. She was started on IV Pitocin. Patient began giving IV penicillin for positive group B strep culture. Pitocin was gradually increased to a total of 21 milliunits. She received an epidural catheter for pain control. She was AROM for clear fluid. The fetus began having increasingly significant variables. The internal toco was placed and she was given 100 cc of amnio infusion. The variables improved significantly. The patient delivered spontaneously, over an intact perineum, and the viable female was placed on maternal abdomen. After the cord stopped pulsating the cord was clamped, cut, and cord bloods obtained. Patient had significant bleeding with the placenta mostly in the vagina but would not finish despite massage. The placenta was manually removed then. The patient's bleeding appeared to be improved significantly. The patient will be watched closely for bleeding that might require a curettage. Both baby and mother doing well. [place] Baby 1: Infant gender: Female Position: Right Occiput Anterior Placenta delivery description: Manual Removal Cord Vessel Description: 3 Vessels and Nuchal Cord score (1 min): 9 score (5 min): 9 Plan for aftercare: Routine care. Monitor for bleeding.
[2020-03-23] MEDS: IBUPROFEN 600 MG TABLET PO ×3 (00:45→14:32)
[2020-03-23] MEDS: LANOLIN OINT 7 GM 1 APPLIC TOP (08:55)
[2020-03-23 09:08] LABS: Add Manual Diff / Slide Review NO; Basophils Absolute Auto 0 /uL (0-100); Basophils Percent Auto 0.2 % (0-2); Eosinophils Absolute Auto 100 /uL (0-450); Eosinophils Percent Auto 0.3 % (2-4); Hematocrit 33.9 % (36-46); Hemoglobin 11.3 g/dL (12.0-16.0); Lymphocytes Absolute Auto 2400 /uL (1100-4500); Lymphocytes Percent Auto 11.6 % (25-40); Mean Corpuscular HGB Conc 33.4 % (30-36); Mean Corpuscular Hemoglobin 30.1 PG (26-34); Mean Corpuscular Volume 90.1 fL (80-100); Monocytes Absolute Auto 1700 /uL (0-900); Neutrophils Absolute Auto 16500 /uL (1500-7000); Neutrophils Percent Auto 79.9 % (50-75); Platelet Count 226 X10^3/uL (150-400); Red Blood Cell Count 3.76 X10^6/uL (4.0-5.2); Red Cell Distribution Width 14.3 % (11.6-14.8); White Blood Cell Count 20.7 X10^3/uL (4.5-11.0)
--- NOTE | 2020-03-23 10:36 | PM.OBDS.1 ---
Discharge Providers Provider Date of admission: 03/21/20 15:01 Discharge Date: 03/23/20 Primary care physician: Doctor Aziza MD Consults: 03/23/20 23:56 Consult to Medical Imaging Director Routine Comment: Discharge provider: Lizbeth Ambrose MD Summary Hospital Course Date Patient Seen: 03/23/20 Time Patient Seen: 10:36 Procedures: Induction for SGA and abnormal Doppler flow of the umbilical cord. She had Cervidil, Cytotec, Wood bulb induction, Pitocin induction. Epidural catheter. She had a spontaneous vaginal delivery with manual removal placenta Hospital Course: Patient underwent induction. She received an epidural catheter for pain control. She had a spontaneous vaginal delivery. She required a manual removal of her placenta. Patient is doing well. Breast-feeding is going well. She denies headaches, scotomata, epigastric pain. She is urinating and ambulating well. She has mild bleeding. Peripartum Data Delivery Method: Natural Vaginal Laceration Description: Periurethral - 1st Degree Procedures: Cervidil, Cytotec, Wood bulb, Pitocin induction. Epidural catheter. Spontaneous vaginal delivery with manual removal of placenta. complications: none [place] 1: Gender: Female Disposition of : home Discharge Diagnosis (1) Vaginal delivery: Status: Acute (2) Small for gestational age fetus: Status: Acute Status at Discharge Cognitive/behavioral status at discharge: oriented Functional status at discharge: independent ambulation Overall status at discharge: patient is progressing back to baseline Time Spent with Patient Time attestation: Total time spent providing and/or coordinating discharge services: Time spent: Less than 30 minutes Objective Labs Result Diagrams: 03/23/20 08:50 Labs: Laboratory Results - last 24 hr 03/23/20 08:50 WBC 20.7 H D RBC 3.76 L Hgb 11.3 L Hct 33.9 L MCV 90.1 MCH 30.1 MCHC 33.4 RDW 14.3 Plt Count 226 Neut % (Auto) 79.9 H Lymph % (Auto) 11.6 L [place] % (Auto) 8.0 Eos % (Auto) 0.3 L Baso % (Auto) 0.2 Neut # (Auto) 39825 H Lymph # (Auto) 2400 [place] # (Auto) 1700 H Eos # (Auto) 100 Baso # (Auto) 0 Exam Vital Signs (past 8 hours): Blood pressure 117/64, pulse is 60, temperature 98? Narrative Exam Narrative: Abdomen is soft, nontender. Uterus is firm, at U, nontender. Mild lochia. Extremities without edema and nontender. Blood type is O positive, she is rubella immune, she received the Tdap in the 3rd trimester. Discharge Plan Discharge Plan Patient Disposition: Home Discharge orders & Medications Prescriptions: Continued (DME) Double Electric breast Pump and Supplies See Rx Instructions .ROUTE .MEDSUPPLY Qty: 1 RF: 0 prenat.vits,oswaldo,udl-ffkh-ungfu Tablet 2 tab PO DAILY RF: 0 Follow up/Referrals: Tequila Grijalva MD [Physician] - 1 Month Doctor Ervin MD [Primary Care Provider] - Diet/Activity/Treatments Diet: Regular Activity: Nothing in vagina for 6 weeks Skin/Wound/Dressing Care Report to your healthcare provider any signs of infection, such as:: chills, fever and increased pain Discharge Data Primary Care Provider: Doctor Aziza Attending Provider: Lizbeth Ambrose
[2020-03-23 11:29] VITALS: BP 117/64; PULSE 60; RESP 17; TEMP 36.6
== END 2020-03-23 19:50 | disposition home or self-care (01) | DRG 541 ==
PROVIDERS: Obstetrics & Gynecology; Admitting Provider Specialist; Referring Provider Specialist; Visit Provider Specialist
DX: O36.5930 Maternal care for other known or suspected poor fetal growth, third trimester, not applicable or unspecified (principal); O41.03X0 Oligohydramnios, third trimester, not applicable or unspecified; Z3A.38 38 weeks gestation of pregnancy; Z37.0 Single live birth; O76 Abnormality in fetal heart rate and rhythm complicating labor and delivery; O71.82 Other specified trauma to perineum and vulva; O99.824 Streptococcus B carrier state complicating childbirth; Z20.822 Contact with and (suspected) exposure to COVID-19
CPT/HCPCS: 01967; 36415; 59050; 59200; 59409; 85025; 86850; 86900; 86901; 87635; C9803; G0378; G0379; J2540; J2590

== ENCOUNTER → 2020-07-11 10:02 | Outpatient (CLI) | payer MEDICAID, SELFPAY ==
[2020-07-11] MEDS: COVID-19 VACC #1, MRNA(MOD) 100 MCG/0.5 ML VIAL IM (10:09)
== END ==
PROVIDERS: Visit Provider Internal Medicine
DX: Z23 Encounter for immunization (principal)
CPT/HCPCS: 0011A; 91301

== ENCOUNTER → 2020-08-09 09:41 | Outpatient (CLI) | payer MEDICAID, SELFPAY ==
[2020-08-09] MEDS: COVID-19 VACC #2, MRNA(MOD) 100 MCG/0.5 ML VIAL IM (09:47)
== END ==
PROVIDERS: Visit Provider Internal Medicine
DX: Z23 Encounter for immunization (principal)
CPT/HCPCS: 0012A; 91301

== ENCOUNTER → 2021-07-25 17:05 | Outpatient (CLI) | payer OTHER, SELFPAY | PROVIDERS: Visit Provider Nurse Practitioner Family | DX: J02.9 Acute pharyngitis, unspecified (principal) | CPT/HCPCS: 87070 ==

== ENCOUNTER → 2021-08-07 16:26 | Outpatient (CLI) | payer OTHER, SELFPAY ==
[2021-08-07 16:45] LABS: Add Manual Diff / Slide Review NO; Basophils Absolute Auto 0 /uL (0-100); Basophils Percent Auto 0.4 % (0-2); Eosinophils Absolute Auto 100 /uL (0-450); Eosinophils Percent Auto 1.1 % (2-4); Hematocrit 38.9 % (36-46); Hemoglobin 12.9 g/dL (12.0-16.0); Lymphocytes Absolute Auto 2600 /uL (1100-4500); Lymphocytes Percent Auto 22.6 % (25-40); Mean Corpuscular HGB Conc 33.2 % (30-36); Mean Corpuscular Hemoglobin 29.2 PG (26-34); Mean Corpuscular Volume 88.1 fL (80-100); Monocytes Absolute Auto 900 /uL (0-900); Monocytes Percent Auto 8.1 % (3-14); Neutrophils Absolute Auto 7800 /uL (1500-7000); Neutrophils Percent Auto 67.8 % (50-75); Platelet Count 354 X10^3/uL (150-400); Red Blood Cell Count 4.42 X10^6/uL (4.0-5.2); Red Cell Distribution Width 14.2 % (11.6-14.8); White Blood Cell Count 11.4 X10^3/uL (4.5-11.0)
[2021-08-07 17:33] LABS: Hepatitis B Surface Antigen NEGATIVE s/c (NEGATIVE); Rubella Antibody IgG 30.7 IU/mL (>15)
[2021-08-07 17:55] LABS: HIV 1 & 2 Ab/Ag 4th Gen Combo NEGATIVE (NEGATIVE); Hep C Virus Ab w/Reflex Quant NEGATIVE s/c (NEGATIVE)
[2021-08-08 08:28] LABS: RPR Screen Non Reactive (Non Reactive); Varicella IgG Antibody 262 index (Immune >165)
== END ==
PROVIDERS: Referring Provider Obstetrics & Gynecology; Visit Provider Obstetrics & Gynecology
DX: Z34.81 Encounter for supervision of other normal pregnancy, first trimester (principal)
CPT/HCPCS: 36415; 80055; 86787; 86803; 86850; 86900; 86901; 87389

== ENCOUNTER → 2021-09-10 17:13 | Outpatient (CLI) | payer OTHER, SELFPAY ==
[2021-09-10 19:10] LABS: Appearance Urine UA CLEAR; Bilirubin Urine UA NEGATIVE (NEGATIVE); Color Urine UA YELLOW; Glucose Urine UA NEGATIVE (Negative); Ketones Urine UA NEGATIVE (NEGATIVE); Leukocyte Esterase Urine UA NEGATIVE (NEGATIVE); Nitrite Urine UA NEGATIVE (Negative); Occult Blood Urine UA NEGATIVE (Negative); Protein Urine UA NEGATIVE (Negative); Specific Gravity Urine UA 1.015 (1.000-1.035); Urobilinogen Urine UA 0.2 E.U./dL (0.2)
[2021-09-10 19:13] LABS: pH Urine UA 6.5 (4.5-8.0)
== END ==
PROVIDERS: Visit Provider Obstetrics & Gynecology
DX: Z34.81 Encounter for supervision of other normal pregnancy, first trimester (principal)
CPT/HCPCS: 81003; 87086

== ENCOUNTER → 2021-09-10 17:14 | Outpatient (CLI) | payer OTHER, SELFPAY ==
[2021-09-10 22:18] LABS: Creatinine Urine Random 84.4 mg/dL
[2021-09-10 22:27] LABS: Protein (Total) Urine Random < 5 mg/dL (0-12); Protein Creatinine Ratio Urine 0.05 GRAM/24H
[2021-09-11 04:35] LABS: Alanine Aminotransferase 13 IU/L (<35); Albumin 3.8 g/dL (3.5-5.0); Albumin Globulin Ratio 1.4 (1.0-2.8); Alkaline Phosphatase 48 U/L (38-126); Aspartate Aminotransferase 22 IU/L (14-36); BUN Creatinine Ratio 20.3 (6-22); Bilirubin Total 0.1 mg/dL (0.2-1.3); Blood Urea Nitrogen 12 mg/dL (7-17); Calcium 8.6 mg/dL (8.4-10.2); Carbon Dioxide 28 mmol/L (22-32); Chloride 102 mmol/L (98-107); Estimated Glomerular Filt Rate > 60 mL/min (>60); Globulin 2.8 g/dL (1.7-4.1); Glucose 76 mg/dL (70-100); HEMOLYSIS < 15 (0-50); Lactate Dehydrogenase 327 U/L (313-618); Potassium 3.9 mmol/L (3.4-5.1); Sodium 134 mmol/L (137-145); Total Protein 6.6 g/dL (6.3-8.2); Uric Acid 3.2 mg/dL (2.5-6.2)
[2021-09-11 04:50] LABS: Free T4, Direct Thyroxine 1.22 ng/dL (0.78-2.19)
== END ==
PROVIDERS: Referring Provider Obstetrics & Gynecology; Visit Provider Obstetrics & Gynecology
DX: Z34.81 Encounter for supervision of other normal pregnancy, first trimester (principal)
CPT/HCPCS: 36415; 80053; 81003; 82570; 83615; 84156; 84439; 84443; 84550; 87086

== ENCOUNTER → 2021-10-01 17:15 | Outpatient (CLI) | payer OTHER, SELFPAY ==
[2021-10-01 18:53] LABS: Free T4, Direct Thyroxine 1.11 ng/dL (0.78-2.19)
[2021-10-01 19:07] LABS: Thyroid Stimulating Hormone 0.652 uIU/mL (0.47-4.68)
== END ==
PROVIDERS: Referring Provider Obstetrics & Gynecology; Visit Provider Obstetrics & Gynecology
DX: R53.83 Other fatigue (principal)
CPT/HCPCS: 36415; 84439; 84443

== ENCOUNTER → 2021-11-04 17:11 | Outpatient (CLI) | payer OTHER, MEDICAID, SELFPAY ==
[2021-11-07 22:04] LABS: AFP, Serum 80.5 ng/mL (.); Estriol, Free 2.17 ng/mL (.); Inhibin A, Dimeric 157.63 pg/mL (.); Inhibin A, MoM 0.71 (.); Maternal Ethnicity Caucasian (.); Maternal Weight 153 lbs (.); Number of Fetuses No (.); OSBR Risk 1 IN 7603 (.); Results Report (.); Test Results *Screen Negative* (.); hCG, MoM 1.71 (.); hCG, Serum 43071 mIU/mL (.)
== END ==
PROVIDERS: Referring Provider Obstetrics & Gynecology; Visit Provider Obstetrics & Gynecology
DX: Z34.82 Encounter for supervision of other normal pregnancy, second trimester (principal); Z3A.21 21 weeks gestation of pregnancy
CPT/HCPCS: 36415; 82105; 82677; 84702; 86336

== ENCOUNTER → 2021-11-06 15:22 | Outpatient (CLI) | payer OTHER, MEDICAID, SELFPAY ==
--- NOTE | 2021-11-06 15:23 | DI.US.S_ITS ---
PROCEDURE: US OB >= 14 WEEKS FETUS INDICATIONS: ANATOMY OUTSIDE/PRIOR DATING DATA: Last menstrual period (LMP): 06/07/2021 LMP-based estimated date of delivery (JERI): 03/14/2022. First dating scan (date and location): 08/07/2021. Estimated date of delivery (JERI) from first dating scan: 03/25/2022. The calculations are made using the ultrasound JERI of 03/25/2022. TECHNIQUE: Real-time scanning was performed of the fetus, with image documentation and biometric measurements. COMPARISON: [facility], , US OB <= 14 WEEKS FETUS, 08/07/2021, 16:16. FINDINGS: General: A single living intrauterine gestation is present. Presentation: Variable. Placenta: Placental position is anterior , and low-lying with the inferior margin of the placenta 1.9 cm above the internal cervical os. Amniotic fluid index: 17.3 cm, normal range is 5-24 cm. Single deepest vertical pocket is 5.5 cm. heart rate: 152 beats per minute. Maternal cervical canal: 5.1 cm long. Normal lower limit is 2.5 cm. biometrics: Biparietal diameter: 20 weeks 2 days Head circumference: 20 weeks Abdominal circumference: 20 weeks 3 days Femur length: 21 weeks 3 days Clinically estimated gestational age: 20 weeks 1 day Composite gestational age from present scan: 20 weeks 4 days Estimated weight and percentile: 376 g; 80th percentile. Anatomic survey: Neuro: Ventricles are non-dilated at less than 10 mm. Cisterna magna is normal at 3-11 mm. Cerebellum is normal in size and morphology. Nuchal skin fold: Normal at less than 6 mm between 14-21 weeks gestational age. Face: Nose and lips, facial profile are normal. Spine: No evidence for spina bifida. Heart: 4-chambered heart is present, with normal ventricular outflow tracts. Diaphragm: Diaphragm is intact. Stomach: Left-sided stomach is present. Kidneys: No hydronephrosis. Normal is less than 5 mm in 2nd trimester, less than 7 mm in 3rd trimester. Cord: 3-vessel cord has orthotopic insertion. Bladder: Normal in size. Extremities: All 4 extremities identified. IMPRESSION: 1. Single living IUP redemonstrated and interval growth is normal. 2. Normal anatomic survey. 3. Low-lying placenta and follow-up is recommended. We strive to produce accurate, complete, and clear reports of imaging services. To assist us in improving patient care, this report was composed using standard report templates and voice recognition software. Therefore, it may contain abnormal punctuation, insertions and/or omissions. Occasional wrong-word or sound-alike substitutions may occur. Though we review the report and make efforts to correct it, we do recommend that the report be read carefully in proper context to recognize any text inaccuracies. Dictated by: Thomas BALDWIN Interpreted: Ann Tapia MD on 11/06/2021 at 16:47 Transcribed by: LIZETH on 11/06/2021 at 16:49 Approved by: Ann Tapia M.D. on 11/06/2021 at 23:30
== END ==
PROVIDERS: Referring Provider Obstetrics & Gynecology; Visit Provider Obstetrics & Gynecology
DX: Z34.82 Encounter for supervision of other normal pregnancy, second trimester (principal); Z3A.20 20 weeks gestation of pregnancy
CPT/HCPCS: 76811

== ENCOUNTER → 2021-12-10 10:41 | Outpatient (CLI) | payer OTHER, MEDICAID, SELFPAY ==
[2021-12-10 14:25] LABS: Hematocrit 35.7 % (36-46); Hemoglobin 12.1 g/dL (12.0-16.0)
[2021-12-10 14:49] LABS: GTT (PREG) 1 Hour PP 50gm Dose 90 mg/dL (76-139)
== END ==
PROVIDERS: Physician Assistant Medical; Referring Provider Obstetrics & Gynecology; Visit Provider Obstetrics & Gynecology
DX: Z34.82 Encounter for supervision of other normal pregnancy, second trimester (principal); Z3A.26 26 weeks gestation of pregnancy
CPT/HCPCS: 36415; 82950; 85014; 85018

== ENCOUNTER → 2021-12-23 15:44 | Outpatient (CLI) | payer OTHER, MEDICAID, SELFPAY ==
--- NOTE | 2021-12-23 15:45 | DI.US.S_ITS ---
PROCEDURE: US OB FOLLOW UP INDICATIONS: LOW LYING PLACENTA OUTSIDE/PRIOR DATING DATA: Last menstrual period (LMP): June 07, 2021. LMP-based estimated date of delivery (JERI): March 14, 2022. First dating scan (date and location): August 07, 2021. Estimated date of delivery (JERI) from first dating scan: March 25, 2022. The calculations are made using the ultrasound JERI of March 25, 2022. TECHNIQUE: Real-time scanning was performed of the fetus, with image documentation. Endovaginal scanning: Not performed COMPARISON: [facility], , OB >= 14 WEEKS FETUS, 11/06/2021, 15:35. FINDINGS: A single living intrauterine gestation is present. Presentation: Vertex. Placenta: Placental position is anterior, without previa. Previously seen possible low lying placenta is no longer visualized. Incidental note of multiple prominent venous lakes. Amniotic fluid index: 24.3 cm, normal range is 5-24 cm. Single deepest vertical pocket is 7.6 cm. heart rate: 149 beats per minute. Maternal cervical canal: 3.5 cm long. Normal lower limit is 2.5 cm. Estimated gestational age from initial scan: 26 weeks and 6 days. IMPRESSION: Single living intrauterine gestation with estimated gestational age of approximately 26 weeks and 6 days. No evidence for low-lying placenta on today's evaluation. Four-quadrant BECCA measures at the upper limits of normal. Dictated by: Catracho Stuart M.D. on 12/24/2021 at 9:23 Approved by: Catracho Stuart M.D. on 12/24/2021 at 9:27
== END ==
PROVIDERS: Referring Provider Physician Assistant Medical; Visit Provider Physician Assistant Medical
DX: O44.42 Low lying placenta NOS or without hemorrhage, second trimester (principal); Z3A.26 26 weeks gestation of pregnancy
CPT/HCPCS: 76816

== ENCOUNTER → 2021-12-31 16:38 | Outpatient (CLI) | payer OTHER, MEDICAID, SELFPAY ==
[2021-12-31 20:16] LABS: Urine N gonorrhoeae NOT DETECTED
[2021-12-31 20:33] LABS: Urine Chlamydia NOT DETECTED
== END ==
PROVIDERS: Visit Provider Obstetrics & Gynecology
DX: Z34.83 Encounter for supervision of other normal pregnancy, third trimester (principal); Z11.3 Encounter for screening for infections with a predominantly sexual mode of transmission; Z3A.29 29 weeks gestation of pregnancy
CPT/HCPCS: 87491; 87591

== ENCOUNTER 2022-01-12 12:26 | Outpatient (CLI) | payer OTHER, MEDICAID, SELFPAY | END 2022-01-12 13:15 | disposition home or self-care (01) | LOC: LABOR 12:56 → OB 01-19 07:56 | PROVIDERS: Referring Provider Obstetrics & Gynecology; Visit Provider Obstetrics & Gynecology | DX: O36.8330 Maternal care for abnormalities of the fetal heart rate or rhythm, third trimester, not applicable or unspecified (principal); Z3A.31 31 weeks gestation of pregnancy | CPT/HCPCS: 59025; G0378; G0379 ==

== ENCOUNTER → 2022-01-19 15:44 | Outpatient (CLI) | payer OTHER, MEDICAID, SELFPAY ==
--- NOTE | 2022-01-19 15:45 | DI.US.S_ITS ---
PROCEDURE: US OB LIMITED INDICATIONS: EFW; BECCA OUTSIDE/PRIOR DATING DATA: Last menstrual period (LMP): 06/07/2021. LMP-based estimated date of delivery (JERI): 01/12/2023. First dating scan (date and location): 08/07/2021. Estimated date of delivery (JERI) from first dating scan: 03/25/2022. TECHNIQUE: Real-time scanning was performed of the fetus, with image documentation and biometric measurements. COMPARISON: None. FINDINGS: General: A single living intrauterine gestation is present. Presentation: Vertex. Placenta: Placental position is anterior , without previa. Amniotic fluid index: 17.8 cm, normal range is 5-24 cm. Single deepest vertical pocket is 6.7 cm. heart rate: 125 beats per minute. Maternal cervical canal: 3.5 cm long. Normal lower limit is 2.5 cm. biometrics: Biparietal diameter: 7.5 cm, 30 week 1 day Head circumference: 28.6 cm, 31 week 3 day Abdominal circumference: 25.3 cm, 29 week 4 day Femur length: 6.3 cm, 32 week 3 day Clinically estimated gestational age: 30 week 5 day Composite gestational age from present scan: 30 week 6 day Estimated weight and percentile: 1620 g, 36th percentile Other: Not applicable. IMPRESSION: Single live intrauterine consistent with a 30 week 6 day gestation by current ultrasound Approved by: Jeff Stacy M.D. on 01/19/2022 at 17:11
== END ==
PROVIDERS: Referring Provider Physician Assistant Medical; Visit Provider Physician Assistant Medical
DX: O40.3XX0 Polyhydramnios, third trimester, not applicable or unspecified (principal); Z3A.30 30 weeks gestation of pregnancy
CPT/HCPCS: 76815

== ENCOUNTER → 2022-02-18 10:36 | Outpatient (CLI) | payer OTHER, MEDICAID, SELFPAY ==
[2022-02-19 11:05] LABS: Strep Grp B PCR NEG for Grp B Strep
[2022-02-19 16:07] LABS: Candida species Positive (Negative); Gardnerella vaginalis Positive (Negative); Trichomoas vaginalis Negative (Negative)
== END ==
PROVIDERS: Visit Provider Obstetrics & Gynecology
DX: N89.8 Other specified noninflammatory disorders of vagina (principal); Z34.83 Encounter for supervision of other normal pregnancy, third trimester; Z3A.36 36 weeks gestation of pregnancy
CPT/HCPCS: 87480; 87510; 87653; 87660

== ENCOUNTER → 2022-03-06 15:49 | Outpatient (CLI) | payer OTHER, MEDICAID, SELFPAY ==
--- NOTE | 2022-03-06 15:50 | DI.US.S_ITS ---
PROCEDURE: US OB LIMITED INDICATIONS: becca OUTSIDE/PRIOR DATING DATA: Last menstrual period (LMP): 06/07/2021 LMP-based estimated date of delivery (JERI): 03/14/2022 First dating scan (date and location): 08/07/2021 Estimated date of delivery (JERI) from first dating scan: 03/25/2022. The calculations are made using the working JERI of 03/25/2022. TECHNIQUE: Real-time scanning was performed of the fetus for biophysical profile, with image documentation. Endovaginal scanning: Not indicated COMPARISON: [facility], OB >= 14 WEEKS FETUS, 11/06/2021, 15:35. [facility] OB FOLLOW UP, 12/23/2021, 16:01. [facility] OB LIMITED, 01/19/2022, 15:55. FINDINGS: General: A single living intrauterine gestation is present. Presentation: Vertex Placenta: Placental position is anterior, without previa. Amniotic fluid index: 9.7 cm, normal range is 5-24 cm. Single deepest vertical pocket is 3.6 cm. heart rate: 125 beats per minute. Maternal cervical canal: 4.3 cm long. Normal lower limit is 2.5 cm. Estimated gestational age from initial scan: 37.2 stomach, bilateral kidneys and urinary bladder are visualized and are within normal limits. IMPRESSION: 1. Single live intrauterine gestation with fetus in vertex presentation. heart rate is 125 beats per minute. 2. BECCA equals 19.7 cm which is within normal limits. Largest pocket is 3.6 cm in size. We strive to produce accurate, complete, and clear reports of imaging services. To assist us in improving patient care, this report was composed using standard report templates and voice recognition software. Therefore, it may contain abnormal punctuation, insertions and/or omissions. Occasional wrong-word or sound-alike substitutions may occur. Though we review the report and make efforts to correct it, we do recommend that the report be read carefully in proper context to recognize any text inaccuracies. Dictated by: Carlos Vega M.D. on 03/06/2022 at 19:23 Approved by: Carlos Vega M.D. on 03/06/2022 at 19:25
== END ==
PROVIDERS: Referring Provider Obstetrics & Gynecology; Visit Provider Obstetrics & Gynecology
DX: O09.293 Supervision of pregnancy with other poor reproductive or obstetric history, third trimester (principal); Z3A.37 37 weeks gestation of pregnancy
CPT/HCPCS: 76815

== ENCOUNTER 2022-03-13 17:11 | Outpatient (CLI) | payer OTHER, MEDICAID, SELFPAY ==
--- NOTE | 2022-03-13 18:12 | PM.OBTRLD ---
Visit Information Visit Information Comments/Additional reasons for admission: 03/13/22: Arline 26 yo here in triage to be evaluated for labor. Primary pt of OBs, seen in triage by Tequila Oliva CNM who is on-call. Arline started experiencing mild, irregular contractions 2 days ago after a cervical exam in the office. Contractions became stronger and more regular this afternoon. Moderate contractions. Began timing contractions, every 5-6 minutes, lasting for about 60 seconds for over an hour. Was induced at 38 weeks with last baby and was unsure if this was true labor. She is no longer feeling consistent contractions. Denies LOF, vaginal bleeding, and abnormal vaginal discharge. Positive FM. Vital Signs Vital Signs: BP 127/77; HR: 75; RR: 16: Temp: 97.8F; O2 98% PFS Medical History (Updated 03/13/22 @ 19:24 by Tequila Oliva CNM, [facility]) Ankle fracture, right Herniated intervertebral disc of lumbar spine (~2017) Situational depression (~2015) Small for gestational age fetus Vaginal bleeding during Vaginal delivery (~03/22/20) Surgical History [place] teeth extracted (~2012) Family History Mother Hypertension Endometriosis Mental health problem Depression Eczema of face Father No problems noted. 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 seatbelt use: always helmet use: Yes water heater temp set < 120 deg: No (Will check and adjust if needed) working smoke detector in home: Yes fire extinguisher in home: Yes carbon monox detector in home: Yes firearms in home: Yes firearms unloaded and locked: Yes do you feel safe at home: Yes Smoking Status: Never smoker second hand exposure: No alcohol intake: former substance use type: 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 weight has: remained stable well-balanced diet: daily or most days daily servings fruits/ve-4 caffeine: Yes (Aware of 200mg limit) Type(s) of exercise: walking and weight lifting frequency: 5-6 times per week Review of Systems Review of Systems ROS: Yes All systems reviewed with the patient and are negative except as otherwise documented Exam Vital Signs (past 8 hours): BP 127/77; HR 75; RR 16: Temp 97.8F; O2 98% Const General: cooperative, healthy appearing and comfortable Nutritional Appearance: average body habitus Orientation: alert, awake and oriented x3 Eyes General: appearance normal, both eyes and all related structures Neck Neck: normal visual inspection and full ROM Resp Effort & Inspection: normal respiratory effort Cardio Rate: regular rate GI Inspection: normal to inspection Other: gravid OB/External & Speculum: external exam normal Manual OB Exam: dilated (1.5), effaced (70%), station (-1) and other Presentation: vertex Other: soft, mid Psych Appearance: grossly normal Evaluation Evaluation Baseline heart rate: 120 Variability: Moderate (11-25) monitor accelerations: Present Monitor Decelerations: Absent Category of Tracing: Reactive Cervical dilation (cm): 1.5 Cervical effacement (%): 70 station: -2 Comments: uterine irritability, no regular contractions Diagnosis, Plan/Disposition Final Diagnosis (1) Supervision of normal in third trimester: Status: Acute (2) False labor after 37 completed weeks of gestation: Status: Acute Plan/Disposition Plan: ASSESSMENT: 26 yo Not in labor Membranes intact Reactive NST PLAN: Discharge home. Discussed labor s/sx and differences between true labor vs latent labor contractions. Reviewed warning s/sx and when to call on-call provider. Assessment & Plan (1) Supervision of normal in third trimester: Status: Acute Code(s): Z34.93 - Encounter for supervision of normal , unspecified, third trimester Assessment and Plan: (2) False labor after 37 completed weeks of gestation: Status: Acute Code(s): O47.1 - False labor at or after 37 completed weeks of gestation Plan Discharge home. Reviewed s/sx of labor and when to return. RTC for scheduled PNV next week if still at that time.
== END 2022-03-13 18:00 | disposition home or self-care (01) ==
LOC: LABOR 17:30 → OB 03-19 10:01
PROVIDERS: Referring Provider Obstetrics & Gynecology; Visit Provider Obstetrics & Gynecology
DX: O47.1 False labor at or after 37 completed weeks of gestation (principal); Z3A.39 39 weeks gestation of pregnancy
CPT/HCPCS: 59025; G0378; G0379

== ENCOUNTER 2022-03-16 09:50 | Outpatient (CLI) | payer OTHER, MEDICAID, SELFPAY | END 2022-03-16 10:30 | disposition home or self-care (01) | LOC: OB 03-19 10:02 | PROVIDERS: Referring Provider Obstetrics & Gynecology; Visit Provider Obstetrics & Gynecology | DX: O48.0 Post-term pregnancy (principal); Z3A.40 40 weeks gestation of pregnancy | CPT/HCPCS: 59025; G0378; G0379 ==

== ENCOUNTER → 2022-03-19 12:28 | Outpatient (CLI) | payer OTHER, MEDICAID, SELFPAY | LOC: LABOR 13:06 → OB 03-23 10:34 | PROVIDERS: PCP Internal Medicine; Referring Provider Obstetrics & Gynecology; Visit Provider Obstetrics & Gynecology | DX: O47.1 False labor at or after 37 completed weeks of gestation (principal); O48.0 Post-term pregnancy; Z3A.41 41 weeks gestation of pregnancy | CPT/HCPCS: 59025; G0378; G0379 ==

== ENCOUNTER 2022-03-23 03:26 | Inpatient (IN) | payer OTHER, MEDICAID, SELFPAY ==
--- NOTE | 2022-03-23 06:49 | P.TNLD_ITS ---
Visit Information Visit Information Date of evaluation: 03/20/22 Primary OB Provider: Jake Mason Reason for Evaluation: Yes non-stress test Comments/Additional reasons for admission: 26 yo at 40+5 wks EGA for NST due to EGA [facility] Medical History (Updated 03/19/22 @ 12:28 by Jake Mason MD) Ankle fracture, right Herniated intervertebral disc of lumbar spine (~2017) Situational depression (~2015) Small for gestational age fetus Vaginal bleeding during Vaginal delivery (~03/22/20) Surgical History [place] teeth extracted (~2012) Family History Mother Hypertension Endometriosis Mental health problem Depression Eczema of face Father No problems noted. 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 seatbelt use: always helmet use: Yes water heater temp set < 120 deg: No (Will check and adjust if needed) working smoke detector in home: Yes fire extinguisher in home: Yes carbon monox detector in home: Yes firearms in home: Yes firearms unloaded and locked: Yes do you feel safe at home: Yes Smoking Status: Never smoker second hand exposure: No alcohol intake: former substance use type: 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
--- NOTE | 2022-03-23 08:11 | PM.OBHP.IH.1 ---
OB HPI Date/Time Date of admission: 03/23/22 Date Patient Seen: 03/23/22 Time Patient Seen: 07:45 History of Present Condition Chief complaint: Labor JERI Calculator Estimated Delivery Date Method Current WG Current Estimate 03/14/22 LMP (Certain) 41w 2d Other Estimates 03/25/22 Ultrasound #1 39w 5d Estimated Gestational Age (weeks): 41w2d : 2 Para: 1 Narrative: 26-year-old at 41 weeks and 2 days gestation presenting with regular painful contractions. She woke at about midnight with contractions and presented to the center after 3:00 a.m.. Contractions are every 5-6 minutes. She was monitored over several hours with some cervical change and descent of the head. She rates her pain 5 to 6/10 with contractions and is more uncomfortable than several hours ago. Denies leaking though she is had quite a bit of bloody show. Baby has been active. care: good care, initiated at week # (8), number of visits (13) and pounds weight gain (40) Dating criteria OB: based on LMP only Ultrasounds: normal 1st trimester US and normal mid trimester US Obstetrical complications: none Medical complications OB: none Indications Indication for induction OB: post dates Preadmission Labs Last OB Lab Results: Blood Type O Positive 08/07/21 16:34 Antibody Screen Negative 08/07/21 16:34 Hematocrit 37.1 % (36-46) 03/23/22 08:10 Hemoglobin 12.7 g/dL (12.0-16.0) 03/23/22 08:10 Hepatitis B Surface Antigen Negative s/c (NEGATIVE) 08/07/21 16:34 Hepatitis C Antibody Negative s/c (NEGATIVE) 08/07/21 16:34 Rubella Antibody 30.7 IU/mL (>15) 08/07/21 16:34 Varicella-Zoster IgG Antibody 262 index (Immune >165) 08/07/21 16:34 Glucose 1 Hour 90 mg/dL (76-139) 12/10/21 10:57 Group B Streptococcus (PCR) Neg for grp b strep 02/18/22 10:36 Prior (ies) Past Pregnancies Del. Date GA/Weeks Labor Lgth Wt Sex Route Outcome Anesthesia Place Delv Breastfeed Preg Comp Name 03/22/20 38 30 5 lb 11 oz Female vaginal live - full term IH still oligohydramnios intrauterine growth restr Ade Evaluation Evaluation Baseline heart rate: 120 Variability: Moderate (11-25) monitor accelerations: Present Monitor Decelerations: Absent Contraction Frequency (minutes): 6 Status: Category l Dilation (cm): 3 Effacement (%): 90 Dilation: 3-4 cm Effacement: >/=80% station: -2 Position of cervix: mid Consistency: soft Webber score: 9 PFSH Medical History Ankle fracture, right Herniated intervertebral disc of lumbar spine (~2017) Situational depression (~2015) Small for gestational age fetus Vaginal bleeding during Vaginal delivery (~03/22/20) Surgical History [place] teeth extracted (~2012) Family History Mother Hypertension Endometriosis Mental health problem Depression Eczema of face Father No problems noted. 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 seatbelt use: always helmet use: Yes water heater temp set < 120 deg: No (Will check and adjust if needed) working smoke detector in home: Yes fire extinguisher in home: Yes carbon monox detector in home: Yes firearms in home: Yes firearms unloaded and locked: Yes do you feel safe at home: Yes Smoking Status: Never smoker second hand exposure: No alcohol intake: former substance use type: 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 weight has: remained stable well-balanced diet: daily or most days daily servings fruits/ve-4 caffeine: Yes (Aware of 200mg limit) Type(s) of exercise: walking and weight lifting frequency: 5-6 times per week Meds Home Medications and Allergies Home Medications Medication Instructions Recorded Confirmed Type prenat.vits,oswaldo,ase-nevh-zaywy 2 tab PO DAILY 08/24/19 03/23/22 History Double Electric breast Pump and #1 ea 12/21/19 03/23/22 Rx Supplies Allergies Allergy/AdvReac Type Severity Reaction Status Date / Time No Known Drug Allergies Allergy Verified 03/12/22 12:17 Review of Systems Review of Systems ROS: Yes All systems reviewed with the patient and are negative except as otherwise documented OB Exam Vital signs Blood Pressure: 111/81 Pulse Rate: 70 Temperature: 97.5 F HENMT Head: normal to inspection Mouth: oral mucosae normal Eyes General: appearance normal, both eyes and all related structures Resp Effort & Inspection: normal respiratory effort Auscultation: clear to auscultation bilaterally Cardio Rate: regular rate Rhythm: regular rhythm Heart Sounds: S1 normal and S2 normal Extremities Lower extremity: Yes normal to inspection; No edema Presentation: vertex Estimated Weight (lbs): 7 Objective Labs Result Diagrams: 03/23/22 08:10 Assessment and Plan Assessment and Plan Assessment and Plan narrative: 26-year-old at 41 weeks and 2 days gestation in latent labor. 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 GBS negative. has been uncomplicated. Plan Admit now with labs and COVID testing Begin Pitocin per protocol Epidural upon request Anticipate
[2022-03-23 08:37] LABS: Add Manual Diff / Slide Review NO; Basophils Absolute Auto 0 /uL (0-100); Basophils Percent Auto 0.2 % (0-2); Eosinophils Absolute Auto 100 /uL (0-450); Eosinophils Percent Auto 0.6 % (2-4); Hematocrit 37.1 % (36-46); Hemoglobin 12.7 g/dL (12.0-16.0); Lymphocytes Absolute Auto 1900 /uL (1100-4500); Lymphocytes Percent Auto 13.3 % (25-40); Mean Corpuscular HGB Conc 34.2 % (30-36); Mean Corpuscular Hemoglobin 29.8 PG (26-34); Mean Corpuscular Volume 87.3 fL (80-100); Monocytes Absolute Auto 900 /uL (0-900); Monocytes Percent Auto 6.1 % (3-14); Neutrophils Absolute Auto 11500 /uL (1500-7000); Neutrophils Percent Auto 79.8 % (50-75); Platelet Count 256 X10^3/uL (150-400); Red Blood Cell Count 4.26 X10^6/uL (4.0-5.2); Red Cell Distribution Width 14.5 % (11.6-14.8); White Blood Cell Count 14.4 X10^3/uL (4.5-11.0)
[2022-03-23 08:38] VITALS: BP 121/78
[2022-03-23] MEDS: LACTATED RINGERS 1,000 ML 100 ML IV (08:43)
[2022-03-23] MEDS: OXYTOCIN PREMIX 30 UNIT/500 ML PLAST..BAG IV (08:46)
[2022-03-23 08:49] VITALS: BP 111/81; PULSE 70; TEMP 36.4
[2022-03-23 08:58] LABS: COVID19 -Nasal RAPID Negative (Negative)
[2022-03-23] MEDS: FENT 2MCG/ML BUPIV 0.125% EPI 200 MCG/100 ML PLAST..BAG 8 MCG EPIDURAL (12:07)
--- NOTE | 2022-03-23 12:32 | PM.OBPNLAB ---
Date/Time Date Patient Seen: 03/23/22 Time Patient Seen: 12:25 Pain Control Pain control: tolerating well and epidural Pelvic Exam Dilation (cm): 4 Effacement (%): 90 station: -2 Amniotic membrane status: Ruptured (AROM for clear fluid) Contractions Pitocin rate (mU/min): 0 Contraction frequency (min): 6 Status status: Category l Heart Rate Baseline: 130 Monitor Accelerations: Present Monitor Decelerations: Absent Monitor Variability: Moderate Assessment and Plan Assessment: active labor and induction ongoing Plan: continuous present management Comments: 26 year old at 41+2 weeks gestation entering active labor, now comfortable with epidural. Piticon was shut off after epidural placement due to hypotension which resolved with ephedrine. AROM performed with clear fluid. Will monitor contractions following AROM and restart pitocin if needed.
--- NOTE | 2022-03-23 16:38 | PM.OBPNLAB ---
Date/Time Date Patient Seen: 03/23/22 Time Patient Seen: 16:24 Pain Control Pain control: epidural Comments: Feeling pressure with contractions, not constant. Pelvic Exam Dilation (cm): 9 Effacement (%): 100 station: 0 Amniotic membrane status: Ruptured (AROM for clear fluid) Contractions Monitor mode: External Pitocin rate (mU/min): 2 Contraction frequency (min): 3 Status status: Category l Heart Rate Baseline: 130 Monitor Accelerations: Present Monitor Decelerations: Absent Monitor Variability: Moderate Assessment and Plan Assessment: active labor Plan: continuous present management Comments: 26 year old at 41+2, progressing well with minimal pitocin. Continue frequent position change with peanut ball. Anticipate .
--- NOTE | 2022-03-23 18:12 | PM.OBPRVD ---
Labor & Delivery Delivery date: 03/23/22 Induction method: per pitocin protocol Delivery augmentation: rupture of membranes Delivery monitor: external FHT Route of delivery: L&D Laceration Description: None Estimated blood loss (mL): 200 Anesthesia Type: Epidural Narrative: Patient is a 26-year-old at 41 weeks and 2 days gestation who gave on 03/23/3022 at 1755. JERI: 03/14/22 Hospital problems: 41 weeks of STAGE I: Labor Patient was admitted for augmentation of latent labor due to postdates gestation. She received minimal Pitocin and progressed into active labor. She received an epidural with excellent pain control. Artificial rupture of membranes occurred at 1224 with clear fluid. She was complete at 5:50 p.m.. EFM primarily category 1 throughout stage I with the exception of intermittent variable decelerations. STAGE II: Delivery Patient was complete and pushed over 3 contractions to deliver a vigorous male . Infant was vertex and TAYLOR. There was a loose nuchal cord which was reduced however this was followed by an approximately 45 second shoulder dystocia. Shoulder dystocia relieved with Ashlee maneuver and suprapubic pressure by nursing. was immediately placed on mother's abdomen. Apgars were 8 and 9. No resuscitation required beyond drying and stimulating. Cord was clamped and cut after several minute delay. was moving both arms symmetrically. STAGE III: Placenta/Cord Placenta delivered 1803 and appeared intact with a three-vessel cord. Pitocin bolus given via IV after delivery of placenta. The vagina was inspected. There was a very superficial superior periurethral laceration which was hemostatic and not repaired, otherwise no lacerations. EBL: 200 mL. Needle and sponge counts were correct. The vagina was inspected and no items were left in situ. Patient was doing well with her and at bedside. [place] Baby 1: Infant gender: Male Presentation: vertex Position: Right Occiput Anterior Placenta delivery description: Spontaneous Cord Vessel Description: Nuchal Cord (loose x1, reduced) score (1 min): 8 score (5 min): 9 weight: 8 lb 2.866 oz Plan for aftercare: Routine care
[2022-03-23] MEDS: IBUPROFEN 600 MG TABLET PO (19:46)
[2022-03-24] MEDS: IBUPROFEN 600 MG TABLET PO ×3 (02:09→15:24)
--- NOTE | 2022-03-24 08:13 | PM.OBDS.1 ---
Discharge Providers Provider Date of admission: 03/23/22 03:26 Discharge Date: 03/24/22 Primary care physician: Landon Aparicio MD Consults: 03/24/22 18:14 Consult to Auto Engine Mechanic Routine Comment: Discharge provider: Jahaira King DO Summary Hospital Course Date Patient Seen: 03/24/22 Time Patient Seen: 07:45 Diagnoses: 41 weeks of Spontaneous vaginal delivery Hospital Course: Patient is a 26-year-old G2 now P2 after spontaneous vaginal delivery at 41 weeks and 2 days gestation. She presented in early labor and was admitted for labor augmentation due to 41 weeks and 2 days gestation. She went on to receive an epidural and progressed well through her labor with minimal Pitocin. Delivery was complicated by a loose nuchal cord and 45 second shoulder dystocia relieved with Ashlee maneuver and suprapubic pressure. Apgars were 8 and 9 and infant did well. There were no lacerations. course uncomplicated. She was ambulating, voiding and passing flatus. Pain controlled with ibuprofen. Vaginal bleeding light to moderate as expected. was going very well. Advised patient to call for fevers, severe pain or bleeding through more than a pad an hour. Follow-up for 6 week visit or sooner if needed. Peripartum Data Delivery Method: Natural Vaginal Laceration Description: None complications: none [place] 1: Gender: Male Discharge Diagnosis (1) Spontaneous vaginal delivery: Status: Acute (2) 41 weeks gestation of : Status: Acute (3) Shoulder dystocia during labor and delivery: Status: Acute Status at Discharge Cognitive/behavioral status at discharge: oriented Functional status at discharge: independent ambulation Overall status at discharge: patient is progressing back to baseline Time Spent with Patient Time attestation: Total time spent providing and/or coordinating discharge services: Time spent: Less than 30 minutes Objective Labs 03/23/22 08:10 Labs: Laboratory Results - last 24 hr 03/23/22 03/23/22 03/23/22 08:10 08:10 08:10 WBC 14.4 H RBC 4.26 Hgb 12.7 Hct 37.1 MCV 87.3 MCH 29.8 MCHC 34.2 RDW 14.5 Plt Count 256 Neut % (Auto) 79.8 H Lymph % (Auto) 13.3 L Harmon % (Auto) 6.1 Eos % (Auto) 0.6 L Baso % (Auto) 0.2 Neut # (Auto) 45291 H Lymph # (Auto) 1900 Harmon # (Auto) 900 Eos # (Auto) 100 Baso # (Auto) 0 SARS-CoV-2 (PCR) Negative Blood Type O Positive Antibody Screen Negative Exam Vital Signs (past 8 hours): Temperature 97.1? blood pressure 115/75 heart rate 56 Narrative Exam Narrative: General: Awake and alert, no acute distress. HEENT: NCAT, EOMI, moist oral mucosa CV: Regular rate and rhythm, no murmurs, rubs or gallops Lungs: CTAB, no wheezes, rales, or rhonchi Abdomen: Soft, nontender; bowel tones active; uterus firm 1 cm below umbilicus Extremities: Warm, no edema Discharge Plan Discharge Plan Patient Disposition: Home Discharge orders & Medications Prescriptions: New docusate sodium 100 mg Capsule 100 mg PO DAILY Qty: 30 0RF ibuprofen 600 mg Tablet 600 mg PO Q6HR PRN (Reason: Pain, Mild (1-3)) Qty: 30 0RF Continued (DME) Double Electric breast Pump and Supplies See Rx Instructions .ROUTE .MEDSUPPLY Qty: 1 0RF Rx Instructions: As directed for 99 months. prenat.vits,oswaldo,ual-tqjl-juyan Tablet 2 tab PO DAILY Rx Instructions: 2 gummy chewable vitamins. Follow up/Referrals: Jake Mason MD [Physician] - 6 Weeks ( appt: please follow up w/ Rachna Mejia on May 04 @ 12:45pm) Visit Report/Discharge Packet Stand Alone Forms: Discharge: Care, Patient Portal/API, Stroke Signs & Symptoms Discharge Data Primary Care Provider: Landon Aparicio V
[2022-03-24] MEDS: PRENATAL VIT,CALC/IRON/FOLIC 1 TABLET 1 TAB PO (09:27)
[2022-03-24] MEDS: DOCUSATE 100 MG CAPSULE PO (09:27)
[2022-03-24] MEDS: ACETAMINOPHEN 325 MG TABLET 650 MG PO ×2 (09:27→15:24)
== END 2022-03-24 16:05 | disposition home or self-care (01) | DRG 807 ==
PROVIDERS: Admitting Provider Family Medicine; PCP Internal Medicine; Referring Provider Obstetrics & Gynecology; Visit Provider Family Medicine
DX: O48.0 Post-term pregnancy (principal); Z37.0 Single live birth; Z3A.41 41 weeks gestation of pregnancy; O76 Abnormality in fetal heart rate and rhythm complicating labor and delivery; O69.81X0 Labor and delivery complicated by cord around neck, without compression, not applicable or unspecified; Z67.40 Type O blood, Rh positive; Z20.822 Contact with and (suspected) exposure to COVID-19
CPT/HCPCS: 36415; 59050; 59400; 59409; 85025; 86850; 86900; 86901; 87635; C9803; G0379; J2590

== ENCOUNTER → 2022-05-04 13:38 | Outpatient (CLI) | payer OTHER, MEDICAID, SELFPAY ==
[2022-05-04 15:00] LABS: TSH w/ Reflex to FT4 1.09 uIU/mL (0.47-4.68)
== END ==
PROVIDERS: Referring Provider Physician Assistant Medical; Visit Provider Physician Assistant Medical
DX: E04.9 Nontoxic goiter, unspecified (principal)
CPT/HCPCS: 36415; 84443

== ENCOUNTER → 2025-01-12 09:13 | Outpatient (CLI) | payer OTHER, SELFPAY ==
--- NOTE | 2025-01-12 09:16 | DI.RAD.S_ITS ---
PROCEDURE: XR LUMBAR SPINE MIN 4V INDICATIONS: BACK PAIN TECHNIQUE: 5 views of the lumbar spine were acquired, including bilateral oblique views. COMPARISON: None. FINDINGS: Bones: 2 millimeter retrolisthesis at L5-S1 and loss of disc height. No vertebral body compression fractures. No suspicious bony lesions. Soft tissues: Overlying bowel gas pattern is normal. No suspicious soft tissue calcifications. Oblique images: No pars defects. IMPRESSION: L5-S1 retrolisthesis. No appreciable degenerative change. No acute abnormality. Dictated by: Panfilo Banerjee M.D. on 01/12/2025 at 9:55 Approved by: Panfilo Banerjee M.D. on 01/12/2025 at 9:56
== END ==
PROVIDERS: Referring Provider Physical Medicine & Rehabilitation; Visit Provider Physical Medicine & Rehabilitation
DX: M54.9 Dorsalgia, unspecified (principal); M43.17 Spondylolisthesis, lumbosacral region
CPT/HCPCS: 72110

== ENCOUNTER → 2025-01-19 19:45 | Outpatient (CLI) | payer OTHER, SELFPAY ==
--- NOTE | 2025-01-19 19:47 | DI.MRI.S_ITS ---
PROCEDURE: MR LUMBAR SPINE WO CON INDICATIONS: lumbosacral radic with weakness TECHNIQUE: Noncontrast sagittal T1 spin echo and T2 fast echo, sagittal STIR, and T2 fast spin echo through the lumbar spine. In cases with scoliosis, additional coronal T2 fast spin echo may be performed. COMPARISON: None. FINDINGS: Image quality: Excellent. Alignment and Curvature: There is normal bony alignment. Bone Marrow: Marrow is of normal overall signal. No acute vertebral body compression fractures. Presumed vertebral hemangioma in the L5 vertebral body. Spinal Cord: Conus medullaris terminates at the L2 level. Visualized cord demonstrates normal signal and size. Paraspinous Soft Tissues: No paravertebral masses. T12-L1: Normal appearance. L1-L2: Normal appearance. L2-L3: Normal appearance. L3-L4: Normal appearance. L4-L5: Normal appearance. L5-S1: Disc desiccation, central disc protrusion contacting the approaching S1 nerve roots, left greater than right. IMPRESSION: Central disc protrusion at L5-S1 contacting the approaching S1 nerve roots. Dictated by: Venancio Navarro M.D. on 01/20/2025 at 9:55 Approved by: Venancio Navarro M.D. on 01/20/2025 at 9:57
== END ==
LOC: MRI 19:46
PROVIDERS: PCP Specialist; Referring Provider Physical Medicine & Rehabilitation; Visit Provider Physical Medicine & Rehabilitation
DX: M51.17 Intervertebral disc disorders with radiculopathy, lumbosacral region (principal)
CPT/HCPCS: 72148